=== PATIENT | female | born 1985 | race Caucasian/White ===

== ENCOUNTER → 2025-01-09 13:17 | Outpatient (REF) | payer BC, SELFPAY | LOC: RAD 13:17 | PROVIDERS: ATTENDING PHYSICIAN Obstetrics & Gynecology Gynecology; FAMILY PHYSICIAN Physician Assistant Medical | DX: N93.9 Abnormal uterine and vaginal bleeding, unspecified (principal) | CPT/HCPCS: 76830; 76856 ==

== ENCOUNTER → 2025-02-28 10:05 | Outpatient (REF) | payer BC, SELFPAY | LOC: WDC 10:05 | PROVIDERS: ATTENDING PHYSICIAN Nurse Practitioner Adult Health | DX: N64.4 Mastodynia (principal) | CPT/HCPCS: 76642; 77062; 77066 ==